=== PATIENT | male | born 1980 | race Caucasian/White ===

== ENCOUNTER 2019-08-18 20:24 | Emergency (ER) | payer OTHER ==
[~2019-08-18] VITALS: Ht 170.2 cm; Wt 79.3 kg
[2019-08-18] MEDS ORDERED: NS 1,000 ML IV ONE (22:00)
[2019-08-18] MEDS ORDERED: ONDANSETRON 4MG/2ML VIAL (J2405) IV ONE (22:00)
[2019-08-18] MEDS ORDERED: PANTOPRAZOLE 40MG INJ (PROTONIX) (C9113) IV ONE (22:00)
[2019-08-18 22:12] LABS: BASO % 0.5 % (0.0-1.0); HEMATOCRIT 48.3 % (42.0-52.0); HEMOGLOBIN 17.1 g/dl (13.5-17.5); LYMPH # 0.4 10^3/uL (1.5-5.0); LYMPH % 4.5 % (24.0-44.0); MEAN CORPUSCULAR HEMOGLOBIN 29.3 pg (27.0-33.0); MEAN CORPUSCULAR HGB CONC 35.4 g/dl (32.0-36.5); MEAN CORPUSCULAR VOLUME 82.8 fl (80.0-96.0); MONO # 0.1 10^3/uL (0.0-0.8); NEUTROPHILS # 7.3 10^3/uL (1.5-8.5); NEUTROPHILS % 93.4 % (36.0-66.0); PLATELET COUNT, AUTOMATED 145 10^3/uL (150-450); RED BLOOD COUNT 5.83 10^6/uL (4.30-6.10); WHITE BLOOD COUNT 7.8 10^3/uL (4.0-10.0)
[2019-08-18 22:25] LABS: INR 1.22; PROTHROMBIN TIME 15.1 SECONDS (11.8-14.0)
[2019-08-18 22:34] LABS: ALBUMIN 4.1 GM/DL (3.2-5.2); ALT/SGPT 158 U/L (12-78); BILIRUBIN,DIRECT 0.5 MG/DL (0.0-0.2); BILIRUBIN,TOTAL 1.2 MG/DL (0.2-1.0); CK-MB VALUE MASS < 1.0 NG/ML (<3.6); CPK CREATINE PHOSPHOKINASE 291 U/L (39-308); LIPASE 112 U/L (73-393); MB/CK RELATIVE INDEX 0.34 (< OR =4); TOTAL PROTEIN 7.6 GM/DL (6.4-8.2); TROPONIN I < 0.02 NG/ML (< 0.10)
[2019-08-18 22:37] LABS: INFLUENZA A AMPLIFICATION NEGATIVE (NEGATIVE); INFLUENZA B AMPLIFICATION NEGATIVE (NEGATIVE)
[2019-08-18] MEDS ORDERED: METOCLOPRAMIDE INJ 10MG/2ML VIAL (J2765) IV ONE (22:45)
[2019-08-18] MEDS: GASTROGRAFIN SOLUTION 30ML PO SCH ×2 (22:55→23:50)
[2019-08-18 23:28] LABS: HEMOGLOBIN A1c 5.8 %
[2019-08-18] MEDS ORDERED: ISOVUE-370 76% 100ML VIAL (Q9967) As Ordered ONE (23:37)
--- NOTE | 2019-08-19 00:21 | REPVR ---
PROCEDURE INFORMATION: Exam: CT Abdomen And Pelvis With Contrast Exam date and time: 08/18/2019 10:01 PM Age: 39 years old Clinical indication: Nausea and vomiting and other: Diarrhea; Patient HX: R/O perf ulcer; Additional info: Vomit + for blood, R/O perf ulcer TECHNIQUE: Imaging protocol: Computed tomography of the abdomen and pelvis with intravenous contrast. Radiation optimization: All CT scans at this facility use at least one of these dose optimization techniques: automated exposure control; mA and/or kV adjustment per patient size (includes targeted exams where dose is matched to clinical indication); or iterative reconstruction. Contrast material: ISO; Contrast volume: 100 ml; Contrast route: AC; Other contrast: Oral, ggraphin, 600; COMPARISON: CT ABD PELVIS WITH CONTRAST 10/05/2012 12:41 PM FINDINGS: Lungs: No suspicious mass or airspace process in the visualized lung bases. Mediastinum: Mild circumferential mural edema of the distal esophagus. No adjacent fluid or intramural air. Liver: Liver appears normal with no focal abnormality. Gallbladder and bile ducts: Gallbladder is present and shows no evidence of gallstone. Pancreas: Pancreas appears normal. No focal mass or peripancreatic inflammation. Spleen: Spleen appears homogeneous without focal mass. Adrenals: Adrenal glands are normal in appearance. Kidneys and ureters: Kidneys appear normal, with no stone, solid mass or hydronephrosis. Stomach and bowel: No evidence of small bowel obstruction. No evidence of acute diverticulitis. Appendix: Appendix is not seen. No RLQ inflammation to suggest appendicitis. Intraperitoneal space: No pneumoperitoneum. Vasculature: No aortic aneurysm. Main portal and splenic veins enhance normally. Lymph nodes: No enlarged lymph nodes. Bladder: Urinary bladder appears normal. Reproductive: Dystrophic prostate calcifications are noted. Bones/joints: Bony structures show no acute fracture or destructive process. IMPRESSION: Mild circumferential mural edema of the distal esophagus suggesting possible reflux esophagitis. No evidence of ulcer perforation or obstruction. Electronically signed by: Arnold Dhillon On 08/19/2019 00:21:20 AM
[2019-08-19] MEDS ORDERED: ONDANSETRON 4MG/2ML VIAL (J2405) IV ONE (02:30)
[2019-08-19] MEDS ORDERED: GI COCKTAIL 50ML BTL(HYOSCYAMINE/MAALOX/LIDOCAINE VISCOUS)(1:3:1) PO ONE (02:45)
[2019-08-19] MEDS ORDERED: ONDA4TAB6 PO (03:05)
[2019-08-19] MEDS ORDERED: OMEP40CA97 PO (03:05)
[2019-08-19] MEDS ORDERED: REGL10TA6 PO (03:05)
[2019-08-19] MEDS ORDERED: CARA1TAB6 PO (03:05)
[2019-08-19 03:20] VITALS: BP 138/79
--- NOTE | 2019-08-19 08:31 | REP ---
PA and lateral chest: Comparison is 11/08/2012. The lung espinosa are clear. Cardiac size is normal. The yinka, mediastinum, skeletal structures are unremarkable. There is no evidence of mediastinal widening on plain films. Impression: Negative PA and lateral chest. Electronically Signed by Jaret Parada MD 08/19/2019 08:22 A
--- NOTE | 2019-08-20 20:42 | ECGEPIP ---
[facility] - ED Test Date: 2019-08-18 Pat Name: MJ CALDERA Department: Room: - Gender: Male [employer] Machine Operator: diego : 1980 Requested By: AMANDA CALVERT Order Number: [id number] Reading MD: Nohemi Ren Measurements Intervals [place] Rate: 91 P: 72 IN: 181 QRS: 93 QRSD: 105 T: 22 QT: 351 QTc: 433 Interpretive Statements SINUS RHYTHM POSSIBLE LEFT ATRIAL ENLARGEMENT BORDERLINE RIGHT AXIS DEVIATION NONSPECIFIC T-WAVE ABNORMALITY NO PRIOR Electronically Signed on 08-20-2019 20:42:00 EST by Nohemi Ren
[2019-08-20] MEDS ORDERED: SUCR1SS PO (23:41)
== END 2019-08-19 03:21 | disposition home or self-care (01) ==
LOC: M ED 20:24
DX: K20.9 Esophagitis, unspecified (principal); J45.909 Unspecified asthma, uncomplicated; F17.210 Nicotine dependence, cigarettes, uncomplicated; Z88.0 Allergy status to penicillin
CPT/HCPCS: 71046; 74177; 80047; 80076; 81001; 82550; 82553; 83036; 83690; 85025; 85610; 85730; 86850; 86900; 86901; 87502; 93005; 96374; 96375; 96376; 99284; C9113; J2405; J2765; Q9963; Q9967

== ENCOUNTER 2019-08-20 21:39 | Emergency (ER) | payer OTHER ==
[~2019-08-20] VITALS: Ht 170.2 cm; Wt 78.4 kg
[~2019-08-20 21:39] MED LIST: CARA1TAB6 PO; OMEP40CA97 PO; ONDA4TAB6 PO; REGL10TA6 PO
[2019-08-20 22:40] LABS: INFLUENZA A AMPLIFICATION NEGATIVE (NEGATIVE); INFLUENZA B AMPLIFICATION NEGATIVE (NEGATIVE)
[2019-08-20] MEDS ORDERED: SUCR1SS PO (23:41)
[2019-08-20] MEDS ORDERED: ACETAMINOPHEN 325 MG/10.15 ML UDC PO ONE (23:45)
[2019-08-20] MEDS ORDERED: LIDOCAINE VISCOUS 2% SOLN 15ML UDC SS ONE (23:45)
[2019-08-21 01:08] VITALS: BP 116/60
== END 2019-08-21 01:47 | disposition home or self-care (01) ==
LOC: M ED 21:39
DX: J02.8 Acute pharyngitis due to other specified organisms (principal); K20.9 Esophagitis, unspecified; Z87.891 Personal history of nicotine dependence; Z88.0 Allergy status to penicillin; Z79.899 Other long term (current) drug therapy

== ENCOUNTER 2023-10-29 10:27 | Emergency (ER) | payer OTHER, SELFPAY ==
[~2023-10-29] VITALS: Ht 170.2 cm; Wt 76.7 kg
[~2023-10-29 10:27] MED LIST changes: +OMEP40CA4 PO; -OMEP40CA97 PO; +SUCR1SS PO
[2023-10-29 10:28] VITALS: TEMP 97.2
[2023-10-29 11:38] LABS: BASO % 0.5 % (0.0-1.0); EOS # 0.5 10^3/uL (0.0-0.5); EOS % 6.6 % (0.0-3.0); HEMATOCRIT 48.8 % (42.0-52.0); HEMOGLOBIN 16.5 g/dl (13.5-17.5); LYMPH # 1.9 10^3/uL (1.5-5.0); MEAN CORPUSCULAR HEMOGLOBIN 29.9 pg (27.0-33.0); MEAN CORPUSCULAR HGB CONC 33.8 g/dl (32.0-36.5); MEAN CORPUSCULAR VOLUME 88.6 fl (80.0-96.0); MONO # 0.6 10^3/uL (0.0-0.8); MONO % 7.8 % (2.0-8.0); NEUTROPHILS # 5.1 10^3/uL (1.5-8.5); NEUTROPHILS % 61.6 % (36.0-66.0); PLATELET COUNT, AUTOMATED 276 10^3/uL (150-450); RED BLOOD COUNT 5.51 10^6/uL (4.30-6.10); WHITE BLOOD COUNT 8.2 10^3/uL (4.0-10.0)
[2023-10-29 12:04] LABS: ALBUMIN 3.8 G/DL (3.2-5.2); ALKALINE PHOSPHATASE 69 U/L (46-116); ALT/SGPT 22 U/L (7.0-40); AST/SGOT 18 U/L (<34); BILIRUBIN,TOTAL 0.3 MG/DL (0.3-1.2); BLOOD UREA NITROGEN 10 MG/DL (9-23); CALCIUM LEVEL 8.9 MG/DL (8.5-10.1); CARBON DIOXIDE LEVEL 29 MMOL/L (20-31); CHLORIDE LEVEL 103 MMOL/L (98-107); CREATININE FOR GFR 0.89 MG/DL (0.70-1.30); GLOMERULAR FILTRATION RATE > 60.0 (>60); GLUCOSE, FASTING 94 MG/DL (60-100); POTASSIUM SERUM 4.5 MMOL/L (3.5-5.1); SODIUM LEVEL 137 MMOL/L (136-145); TOTAL PROTEIN 6.8 G/DL (5.7-8.2)
[2023-10-29 12:37] LABS: CK-MB VALUE MASS < 1.0 NG/ML (<3.6)
[2023-10-29 12:38] LABS: CPK CREATINE PHOSPHOKINASE 63 U/L (46-171); MB/CK RELATIVE INDEX 1.58 (< OR =4)
[2023-10-29 13:19] LABS: CK-MB VALUE MASS < 1.0 NG/ML (<3.6)
[2023-10-29 13:20] LABS: CPK CREATINE PHOSPHOKINASE 61 U/L (46-171); MB/CK RELATIVE INDEX 1.63 (< OR =4)
[2023-10-29] MEDS ORDERED: OMEP40CA5 PO (15:00)
[2023-10-29] MEDS ORDERED: ALBU8.5H INH (15:01)
[2023-10-29] MEDS ORDERED: HOME MED LIST COMPLETE! XX SCH (15:05)
[2023-10-29 17:12] VITALS: BP 124/73; O2SAT 99
== END 2023-10-29 18:31 | disposition left against medical advice (07) ==
LOC: M ED 10:27
DX: R42 Dizziness and giddiness (principal); R00.1 Bradycardia, unspecified; J45.909 Unspecified asthma, uncomplicated; K21.9 Gastro-esophageal reflux disease without esophagitis; F17.210 Nicotine dependence, cigarettes, uncomplicated; Z88.0 Allergy status to penicillin; Z79.51 Long term (current) use of inhaled steroids; Z79.899 Other long term (current) drug therapy; Z53.9 Procedure and treatment not carried out, unspecified reason